=== PATIENT | male | born 1990 | race Caucasian/White ===

== ENCOUNTER 2016-10-24 19:40 | Emergency (ER) | payer MEDICAID ==
[2016-10-24 19:52] VITALS: RESP 18
[2016-10-24] MEDS ORDERED: Clindamycin 600 MG in Sodium Chloride 0.9% 100 ML IVPB STA (20:11)
--- NOTE | 2016-10-24 20:22 | ED PDOC ---
Upper Extremity Pain/Injury Time Seen by Provider: 10/24/16 19:59 Chief Complaint (Nursing): Upper Extremity Problem/Injury Chief Complaint (Provider): Blister on Right Forearm History Per: Patient History/Exam Limitations: no limitations Onset/Duration Of Symptoms: Days (x2), Worse Since (onset) Current Symptoms Are (Timing): Still Present Additional Complaint(s): Ben Garrett is a 26 year old male, with no pertinent past medical history, who presents to the ED on 10/24/16 for the evaluation of a blister that he had noted to his right forearm 2 days prior to arrival. Patient states that just prior to symptom onset he had worn a wet leather bracelet on the affected area and, though it had initially been small in size, the area has grown more red/ painful as he had picked at it in an attempt to get it to rupture. ED visit was prompted today after he had begun to experience a subjective fever. Has both applied A&D ointment and medicated with Bactrim (x1) without improvement in addition to taking a Percocet (x1) for relief of pain. PMD: Bryant Pastor Past Medical History Reviewed: Historical Data, Nursing Documentation, Vital Signs Vital Signs: Last Vital Signs Temp 100.3 F H 10/24/16 19:47 Pulse 98 H 10/24/16 19:47 Resp 18 10/24/16 19:47 BP 158/83 H 10/24/16 19:47 Pulse Ox 100 10/24/16 19:47 - Medical History PMH: No Chronic Diseases - Family History Family History: States: Unknown Family Hx - Immunization History Hx Tetanus Toxoid Vaccination: Yes Hx Influenza Vaccination: Yes Hx Pneumococcal Vaccination: No - Home Medications Home Medications: Ambulatory Orders Medication Instructions Recorded Amoxicillin 500 mg PO TID #30 cap 12/20/13 Ibuprofen [Motrin] 600 mg PO Q6 #20 tab 12/20/13 Bacitracin 1 ea TP TID PRN #20 g 12/29/13 Cephalexin [Keflex] 500 mg PO Q6 #20 cap 12/29/13 Clindamycin [Cleocin] 300 mg PO BID #14 cap 10/24/16 Mupirocin 2% Cream [Bactroban 30 applic TOP BID #1 tube 10/24/16 Cream] - Allergies Allergies/Adverse Reactions: Allergies Allergy/AdvReac Type Severity Reaction Status Date / Time No Known Allergies Allergy Verified 12/20/13 20:13 Review of Systems Constitutional: Positive for: Fever (subjective) Musculoskeletal: Positive for: Arm Pain (blister on right forearm w/surrounding erythema) Skin: Positive for: Other Physical Exam - Reviewed Nursing Documentation Reviewed: Yes Vital Signs Reviewed: Yes - Physical Exam Appears: Positive for: Non-toxic, No Acute Distress Extremity: Positive for: Normal ROM (FROM of right wrist/of all fingers on right hand), Other (10cm area of erythema noted to radial aspect of right wrist , tender w/palpable induration/warmth and a centralized/scabbed over lesion; no flucturance) Neurologic/Psych: Positive for: Alert, Oriented - Laboratory Results Result Diagrams: 10/24/16 20:41 10/24/16 20:41 - ECG O2 Sat by Pulse Oximetry: 100 (RA) Pulse Ox Interpretation: Normal (R) Medical Decision Making Medical Decision Makin:59 Initial Impression: cellulitis Initial Plan: * Labs * Blood Culture * Clindamycin 300mg PO * Tylenol 650mg PO * Reevaluation Scribe Attestation: Documented by Veronika Bergeron, acting as a scribe for Fatoumata Canchola PA-C. Provider Scribe Attestation: All medical record entries made by the Scribe were at my direction and personally dictated by me. I have reviewed the chart and agree that the record accurately reflects my personal performance of the history, physical exam, medical decision making, and the department course for this patient. I have also personally directed, reviewed, and agree with the discharge instructions and disposition. Disposition - Clinical Impression Clinical Impression: Cellulitis - Patient ED Disposition Is Patient to be Admitted: No - Disposition Disposition: Routine/Home Disposition Time: 20:01 Condition: STABLE Prescriptions: Mupirocin 2% Cream [Bactroban Cream] 30 applic TOP BID #1 tube Clindamycin [Cleocin] 300 mg PO BID #14 cap Instructions: Cellulitis (ED)
[2016-10-24 20:51] LABS: BASO # 0.1 K/uL (0.0-0.2); BASO % 0.5 % (0.0-2.0); EOS # 0.1 K/uL (0.0-0.7); EOS % 0.4 % (0.0-4.0); HEMATOCRIT 40.7 % (35.0-51.0); LYMPH # 2.7 K/uL (1.0-4.3); LYMPH % 18.1 % (20.0-40.0); MEAN CELL VOLUME 89.6 fl (80.0-94.0); MEAN CORPUSCULAR HGB CONC 33.5 g/dL (33.0-37.0); MEAN PLATELET VOLUME 8.2 fl (7.2-11.7); MONO # 1.1 K/uL (0.0-0.8); MONO % 7.2 % (0.0-10.0); NEUT % 73.8 % (50.0-75.0); NRBC % 0.1 % (0.0-0.0); RED CELL DISTRIBUTION WIDTH 12.4 % (11.5-14.5)
[2016-10-24 20:59] LABS: ALKALINE PHOSPHATASE 136 U/L (38-126); ALT/SGPT 74 U/L (21-72); AST/SGOT 43 U/L (17-59); BILIRUBIN,TOTAL 0.8 mg/dl (0.2-1.3); BLOOD UREA NITROGEN 14 mg/dl (9-20); CALCIUM 9.5 mg/dL (8.4-10.2); CARBON DIOXIDE 24 mmol/L (22-30); CHLORIDE 103 mmol/L (98-107); GFR AFRICAN-AMERICAN > 60; GLUCOSE,RANDOM 93 mg/dL (75-110); POTASSIUM 4.2 MMOL/L (3.6-5.0); SODIUM 143 mmol/l (132-148); TOTAL PROTEIN 8.5 G/DL (6.3-8.2)
[2016-10-24 21:51] VITALS: BP 131/72; PULSE 76; TEMP 98.8
[2016-10-25 20:01] VITALS: O2SAT 100
== END 2016-10-24 21:56 | disposition home or self-care (01) ==
LOC: H.ER 19:40
DX: L03.90 Cellulitis, unspecified (principal)